=== PATIENT | male | born 1980 | race Caucasian/White ===

== ENCOUNTER → 2019-10-19 | Outpatient (CLI) | payer OTHER ==
[~2019-10-19] MED LIST: AMBIEN5 MG PO; CLONAZEPAM PO; ELAVIL10 MG PO; FLEXERIL10 MG PO; IMITREX25 MG PO; LORTAB 5/500 501 TAB PO
== END ==
LOC: COL.RAD 10:46
DX: M79.89 Other specified soft tissue disorders (principal)